=== PATIENT | male | born 1970 | race Caucasian/White ===

== ENCOUNTER 2025-03-11 12:52 | Emergency (ER) | payer BC, SELFPAY ==
--- NOTE | 2025-03-11 14:10 | RAD REPORT ---
EXAM: Chest Abd Pelvis Wo Con CLINICAL INDICATION: Male, 54 years old TRAUMA TECHNIQUE: CT chest, abdomen and pelvis was performed, without IV contrast, as per department protoco l. Axial, sagittal and coronal reconstructions were obtained. One or more of the following dose reduction techniques were used: Automated exposure control, adjustment of the mA and/or kV according to the patient size, and/or iterative reconstruction. Unless otherwise specified, incidental findings do not require dedicated imaging follow-up. [id number]. COMPARISON: No prior exams FINDINGS: The lack of intravenous contrast limits the sensitivity of this exam for evaluation of solid visceral organs, vascular structures, and retroperitoneum. ---THORAX--- LOWER NECK AND CHEST WALL: Visualized thyroid gland and soft tissues are normal. MEDIASTINUM AND LYMPH NODES: No mediastinal mass or fluid collection. Normal size mediastinal, hilar, and axillary lymph nodes. THORACIC AORTA: No thoracic aortic aneurysm. PULMONARY ARTERIES: Caliber is within normal limits. HEART: Normal heart size. No coronary calcifications. No significant pericardial effusion. LUNGS AND AIRWAYS: Airways are clear. No evidence of airspace or interstitial process. No suspicious and/or stable pulmonary nodules. PLEURA: No pleural effusion. No pneumothorax. ---ABDOMEN/PELVIS--- UPPER GI: No significant abnormality. LIVER: No significant focal abnormality. GALLBLADDER/BILE DUCTS: No biliary ductal dilatation.? PANCREAS: No mass, ductal dilation, or hina-pancreatic fluid. SPLEEN: Unremarkable. ADRENALS: No adrenal masses. KIDNEYS AND URETERS: No hydronephrosis.Limited evaluation for renal lesions in the absence of IV cont rast. ABDOMINAL AORTA AND OTHER VESSELS: Normal caliber aorta and IVC. PERITONEUM: No abnormal free fluid. No free air. LYMPH NODES: No pathologic lymphadenopathy. ABDOMINAL WALL: Unremarkable SMALL BOWEL/COLON: Small bowel has normal course and caliber. No colonic wall thickening or pericolon ic inflammatory changes. URINARY BLADDER: Nonspecific circumferential bladder wall thickening. REPRODUCTIVE ORGANS: No pathologic process. ---COMBINED--- MUSCULOSKELETAL: No acute or suspicious osseous abnormality. ADDITIONAL FINDINGS: None. IMPRESSION: No evidence of significant trauma to the chest, abdomen, or pelvis.
--- NOTE | 2025-03-11 14:29 | EDPHYS ---
Physician Documentation [facility] Name: Cole Quiles Jr Age: 54 yrs Sex: Male : 1970 Arrival Date: 03/11/2025 Time: 12:52 Bed DX3 Private MD: ED Physician Edmund Abraham HPI: 03/11 15:03 This 54 yrs old Male presents to ER via Ambulatory with complaints of Flank Pain - LT. kb 15:03 Patient is a 54-year-old male who presents for pain to posterior left ribs and flank kb that started on Sunday after a 23 foot ladder fell onto his back while he was weed eating. States the pain has been getting progressively worse. Reports pain is worse whenever he coughs or tries to lift anything heavy.. Historical: - Allergies: 13:23 No Known Allergies; dd2 - PMHx: 13:23 None; dd2 - PSHx: 13:23 None; dd2 - Immunization history:: Adult Immunizations up to date. - Infectious Disease History:: Denies. - Social history:: Smoking status: Patient denies any tobacco usage or history of. ROS: 15:02 Constitutional: As per HPI kb Exam: 15:02 Constitutional: This is a well developed, well nourished patient who is awake, alert, kb and in no acute distress. Head/Face: Normocephalic, atraumatic. ENT: Moist Mucous membranes Respiratory: Respirations even and unlabored. No increased work of breathing. Talking in full sentences Abdomen/GI: Soft, non-tender. No distention Back: No spinal tenderness. No costovertebral tenderness. Full range of motion. MS/ Extremity: Pulses equal, no cyanosis. Neurovascular intact. Full, normal range of motion. Neuro: Awake and alert, GCS 15, oriented to person, place, time, and situation. 15:02 Skin: injury, abrasion(s), small abrasion noted, moderate sized abrasion noted, of the left scapular area, left subscapular area and left mid back, Vital Signs: 13:18 BP 123 / 87; Pulse 70; Resp 16; Temp 98.3; Pulse Ox 100% on R/A; Weight 58.97 kg; dd2 Height 5 ft. 3 in. ; Pain 7/10; 13:18 Body Mass Index 23.03 (58.97 kg, 160.02 cm) dd2 13:18 Pain Scale: Adult dd2 MDM: 13:03 Medical Screening Exam initiated kb 15:02 Differential diagnosis: Contusion, fracture, strain, pneumothorax. Data reviewed: vital kb signs, nurses notes. 15:03 Counseling: I had a detailed discussion with the patient and/or guardian regarding the kb historical points, exam findings, and any diagnostic results supporting the discharge/admit diagnosis, radiology results, the need for outpatient follow up, a family practitioner, to return to the emergency department if symptoms worsen or persist or if there are any questions or concerns that arise at home. 03/11 13:26 Order name: CT Chest Abdomen Pelvis W/O Contrast; Complete Time: 14:13 kb Administered Medications: No medications were administered Disposition: 16:05 I was immediately available on-site in the Emergency Department for consultation in the ms3 care of the patient. Disposition Summary: 03/11/25 14:28 Discharge Ordered Notes: Location: Home kb Condition: Stable kb Diagnosis - Abrasion of left back wall of thorax kb - Right upper back pain kb Followup: kb - With: Emergency Department - When: As needed - Reason: Worsening of condition Followup: kb - With: Private Physician - When: 2 - 3 days - Reason: Recheck today's complaints, Continuance of care, Re-evaluation by your physician Discharge Instructions: - Discharge Summary Sheet kb - Acute Back Pain, Adult kb - Contusion, [id number] kb Forms: - Work release form kb - Medication Reconciliation Form kb - Antibiotic Education kb - Prescription Opioid Use kb - Patient Portal Instructions kb - Leadership Thank You Letter kb Prescriptions: - Ibuprofen 600 mg Oral Tablet - take 1 tablet ORAL route every 6 hours As needed take with food; 30 tablet; kb Refills: 0, Product Selection Permitted - orphenadrine citrate 100 mg Oral Tablet Sustained Release - take 1 tablet ORAL route 2 times per day As needed; 20 tablet; Refills: 0, kb Product Selection Permitted Signatures: Dispatcher [employer] Roro Zelaya, CHERRI ROSA-Edmund Amezcua DO DO ms3 YAZ RAZO RN RN dd2
--- NOTE | 2025-03-11 14:29 | ER ---
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 Coronavirus screen: At this time, the client does not indicate any symptoms associated with coronavirus-19. Ebola Screen: No symptoms or risks identified at this time. Initial Sepsis Screen: Does the patient meet any 2 criteria? No. Patient's initial sepsis screen is negative. Does the patient have a suspected source of infection? No. Patient's initial sepsis screen is negative. Risk Assessment: Do you want to hurt yourself or someone else? Patient reports no desire to harm self or others. Onset of symptoms was March 02, 2025. 13:18 Method Of Arrival: Ambulatory dd2 13:18 Acuity: SUKHDEEP 3 dd2 Triage Assessment: 13:23 General: Appears in no apparent distress. uncomfortable, Behavior is calm, cooperative, dd2 appropriate for age. Pain: Complains of pain in left scapular area, left subscapular area and left mid back. Historical: - Allergies: 13:23 No Known Allergies; dd2 - PMHx: 13:23 None; dd2 - PSHx: 13:23 None; dd2 - Immunization history:: Adult Immunizations up to date. - Infectious Disease History:: Denies. - Social history:: Smoking status: Patient denies any tobacco usage or history of. Vital Signs: 13:18 BP 123 / 87; Pulse 70; Resp 16; Temp 98.3; Pulse Ox 100% on R/A; Weight 58.97 kg; dd2 Height 5 ft. 3 in. ; Pain 7/10; 13:18 Body Mass Index 23.03 (58.97 kg, 160.02 cm) dd2 13:18 Pain Scale: Adult dd2 ED Course: 12:57 Patient arrived in ED. cj3 13:02 Roro Ram FNP-C is [facility]. kb 13:02 Edmund Abraham DO is Attending Physician. kb 13:23 Triage completed. dd2 13:23 Arm band placed on left wrist. dd2 13:46 CT Chest Abdomen Pelvis W/O Contrast In Process Unspecified. EDMS 14:43 Jessy Mclean, RN is Primary Nurse. iw Administered Medications: No medications were administered Outcome: 14:28 Discharge ordered by MD. kb 14:43 Patient left the ED. iw Signatures: Dispatcher [employer] EDMS Roro Ram FNP-C FINANCIAL ANALYST INTERN-Jessy Ugarte, RN RN iw YAZ RAZO RN RN dd2 Britta Luz cj3
[2025-03-11 15:26] VITALS: BP 123/87; TEMP 98.3; O2SAT 100
== END 2025-03-11 14:43 | disposition home or self-care (01) ==
LOC: ER 12:52
DX: S20.412A Abrasion of left back wall of thorax, initial encounter (principal); W11.XXXA Fall on and from ladder, initial encounter
CPT/HCPCS: 71250; 74176; 99281